=== PATIENT | male | born 1945 | race Caucasian/White ===

== ENCOUNTER → 2022-10-18 16:56 | Outpatient (CLI) | payer MEDICARE, OTHER, SELFPAY ==
[2022-10-18 17:42] LABS: Basophils % 0.7 % (0.1-2.0); Eosinophils # 0.2 K/mm3 (0.0-0.4); Eosinophils % 3.7 % (0.1-12.0); Hematocrit 36.8 % (42.0-52.0); Hemoglobin 11.7 g/dL (14.1-18.0); Lymphocytes # 1.6 K/mm3 (0.7-4.5); Lymphocytes % 31.5 % (10-50); Mean Corpuscular HGB Conc 31.8 g/dL (31.8-35.4); Mean Corpuscular Hemoglobin 26.6 pg (27.0-31.2); Mean Corpuscular Volume 83.6 fl (80-94); Mean Platelet Volume 10.3 fl (7.4-10.4); Monocytes # 0.5 K/mm3 (0.1-1.0); Monocytes % 9.2 % (1.7-9.3); Neutrophils # 2.7 K/mm3 (1.8-7.8); Neutrophils % 54.9 % (37.0-80.0); Platelet Count 178 K/mm3 (142-424); Red Cell Distribution Width 16.1 % (11.5-17.5)
[2022-10-18 18:08] LABS: Alanine Aminotransferase 14 U/L (12-78); Albumin Level 4.2 g/dl (3.5-5.0); Albumin/Globulin Ratio 1.4 (1.1-1.8); Alkaline Phosphatase 45 U/L (38-126); Anion Gap 14.8 mEq/L (5-15); Aspartate Amino Transferase 29 U/L (17-59); Bilirubin,Total 0.4 mg/dl (0.2-1.3); Blood Urea Nitrogen 18 mg/dl (9-20); Calcium 8.3 mg/dl (8.4-10.2); Carbon Dioxide 24 mmol/L (22.0-30.0); Chloride 104 mmol/L (98-107); Cholesterol 87 mg/dl (140-200); Estimated Glomerular Filt Rate 65 ml/min (>60); GFR (African American) 79 ML/MIN (>60); Globulin 2.9 g/dL (1.3-3.2); Glucose 102 mg/dl (74-100); HDL Cholesterol 29 mg/dl (40-60); Potassium 4.8 mmoL/L (3.5-5.1); Sodium 138 mmol/L (136-145); Total Protein,Serum 7.1 g/dl (6.3-8.2); Triglycerides 203 mg/dl (30-150); VLDL Cholesterol 41 mg/dL (0-40)
[2022-10-18 18:09] LABS: Erythrocyte Sedimentation Rate 43 mm/hr (0-20)
[2022-10-18 18:20] LABS: C-Reactive Protein 4.5 mg/L (0-4); Direct LDL Cholesterol 31.23 mg/dL (100-129)
[2022-10-18 18:40] LABS: Thyroid Stimulating Hormone 4.29 uIU/mL (0.465-4.68)
[2022-10-18 19:39] LABS: Hemoglobin A1C 5.9 % (4.0-6.0)
== END ==
PROVIDERS: PCP Family Medicine; Visit Provider Family Medicine
DX: E11.9 Type 2 diabetes mellitus without complications (principal); M06.9 Rheumatoid arthritis, unspecified; E78.5 Hyperlipidemia, unspecified; I10 Essential (primary) hypertension; Z79.84 Long term (current) use of oral hypoglycemic drugs
CPT/HCPCS: 80053; 80061; 83036; 84443; 85025; 85651; 86140

== ENCOUNTER → 2022-10-20 07:18 | Outpatient (CLI) | payer MEDICARE, OTHER, SELFPAY ==
--- NOTE | 2022-10-20 07:18 | US_ITS ---
FINAL REPORT TECHNIQUE: Ultrasound images of the abdominal aorta were obtained. CLINICAL HISTORY: follow-up on aorta COMPARISON: None FINDINGS: ULTRASOUND OF THE ABDOMINAL AORTA The aorta measures up to 18 millimeters, within normal limits. Iliac arteries measure 7 mm and 7 mm. IMPRESSION: No evidence of abdominal aortic aneurysm. Reviewed, Interpreted and Dictated by Tio Mercado III, MD Transcribed by Carolina Chaidez Authenticated and [facility]
== END ==
PROVIDERS: PCP Family Medicine; Visit Provider Family Medicine
DX: E78.5 Hyperlipidemia, unspecified (principal); I10 Essential (primary) hypertension
CPT/HCPCS: 76770

== ENCOUNTER → 2023-01-17 17:29 | Outpatient (CLI) | payer MEDICARE, OTHER, SELFPAY ==
[2023-01-17 19:42] LABS: Erythrocyte Sedimentation Rate 22 mm/hr (0-20)
[2023-01-17 19:45] LABS: Basophils % 0.7 % (0.1-2.0); Eosinophils # 0.2 K/mm3 (0.0-0.4); Eosinophils % 2.9 % (0.1-12.0); Hematocrit 36.3 % (42.0-52.0); Hemoglobin 11.4 g/dL (14.1-18.0); Lymphocytes # 1.3 K/mm3 (0.7-4.5); Lymphocytes % 22.9 % (10-50); Mean Corpuscular HGB Conc 31.4 g/dL (31.8-35.4); Mean Corpuscular Hemoglobin 26.5 pg (27.0-31.2); Mean Corpuscular Volume 84.4 fl (80-94); Mean Platelet Volume 11.2 fl (7.4-10.4); Monocytes # 0.5 K/mm3 (0.1-1.0); Monocytes % 8.4 % (1.7-9.3); Neutrophils # 3.6 K/mm3 (1.8-7.8); Neutrophils % 65.1 % (37.0-80.0); Platelet Count 179 K/mm3 (142-424); White Blood Count 5.5 K/mm3 (4.8-10.8)
[2023-01-17 20:15] LABS: Alanine Aminotransferase 16 U/L (12-78); Albumin Level 4.1 g/dl (3.5-5.0); Albumin/Globulin Ratio 1.4 (1.1-1.8); Alkaline Phosphatase 45 U/L (38-126); Anion Gap 12.1 mEq/L (5-15); Aspartate Amino Transferase 26 U/L (17-59); Bilirubin,Total 0.2 mg/dl (0.2-1.3); Blood Urea Nitrogen 17 mg/dl (9-20); Calcium 8.5 mg/dl (8.4-10.2); Carbon Dioxide 24 mmol/L (22.0-30.0); Chloride 108 mmol/L (98-107); Estimated Glomerular Filt Rate 73 ml/min (>60); GFR (African American) 88 ML/MIN (>60); Glucose 117 mg/dl (74-100); Potassium 5.1 mmoL/L (3.5-5.1); Sodium 139 mmol/L (136-145); Total Protein,Serum 7.1 g/dl (6.3-8.2)
[2023-01-17 20:20] LABS: C-Reactive Protein 2.9 mg/L (0-4)
[2023-01-19 13:49] LABS: Anti-Cyclic Citrullinated Pept >250 units (0-19)
== END ==
PROVIDERS: PCP Family Medicine; Visit Provider Family Medicine
DX: M05.79 Rheumatoid arthritis with rheumatoid factor of multiple sites without organ or systems involvement (principal)
CPT/HCPCS: 80053; 85025; 85651; 86140; 86200; 86431

== ENCOUNTER → 2023-02-14 07:50 | Outpatient (CLI) | payer MEDICARE, OTHER, SELFPAY ==
--- NOTE | 2023-02-14 07:55 | XR_ITS ---
FINAL REPORT CLINICAL HISTORY: Left shoulder pain FINDINGS: Left shoulder Three views were obtained. There is no acute fracture or dislocation. There is mild AC and glenohumeral joint degenerative change. There are multiple subchondral cysts in the superior humeral head. There is a small calcification superior to the humeral head, may represent calcific tendinitis. There is a questionable chronic Hill-Sachs deformity. IMPRESSION: Degenerative and chronic appearing findings as detailed above. Reviewed, Interpreted and Dictated by Tio Mercado III, MD Transcribed by Maryellen Jackson Authenticated and [facility]
== END ==
PROVIDERS: PCP Family Medicine; Visit Provider Orthopaedic Surgery
DX: M25.512 Pain in left shoulder (principal)
CPT/HCPCS: 73030

== ENCOUNTER → 2023-06-05 23:00 | Outpatient (CLI) | payer MEDICARE, OTHER, SELFPAY | PROVIDERS: PCP Family Medicine; Visit Provider Family Medicine | DX: R05.9 Cough, unspecified (principal); U07.1 COVID-19 | CPT/HCPCS: 87635 ==

== ENCOUNTER 2023-09-25 19:02 | Outpatient (CLI) | payer MEDICARE, OTHER, SELFPAY ==
[2023-09-25 16:31] LABS: Cholesterol 104 mg/dl (140-200); Triglycerides 223 mg/dl (30-150); VLDL Cholesterol 45 mg/dL (0-40)
[2023-09-25 16:32] LABS: Chol/HDL Ratio 3.6 (1-3.5); HDL Cholesterol 29 mg/dl (40-60)
[2023-09-25 16:39] LABS: Hemoglobin A1C 6.5 % (4.0-6.0)
[2023-09-25 16:42] LABS: Direct LDL Cholesterol 41.66 mg/dL (100-129)
[2023-09-25 16:49] LABS: Amphetamine/Metha Screen,Urine Negative ng/ml (<1000)
[2023-09-25 16:50] LABS: Barbiturates Screen,Urine Negative ng/ml (<200); Microalbumin/Creatinine Ratio 14.3
[2023-09-25 16:51] LABS: Benzodiazepines Screen,Urine Negative ng/ml (<200); Cannabinoid Screen,Urine Negative ng/ml (<50)
[2023-09-25 16:52] LABS: Cocaine Screen,Urine Negative ng/ml (<300)
[2023-09-25 16:53] LABS: Methadone Screen,Urine Negative ng/ml (<300); Opiate Screen,Urine Negative ng/ml (<300)
[2023-09-25 16:54] LABS: Phencyclidine Screen,Urine Negative ng/ml (<25)
[2023-09-25 17:03] LABS: Thyroid Stimulating Hormone 4.92 uIU/mL (0.465-4.68)
[2023-09-26 09:24] LABS: Basophils # 0.1 K/mm3 (0-0.2); Eosinophils # 0.1 K/mm3 (0.0-0.4); Eosinophils % 1.8 % (0.1-12.0); Hematocrit 39.7 % (42.0-52.0); Hemoglobin 12.3 g/dL (14.1-18.0); Lymphocytes # 1.5 K/mm3 (0.7-4.5); Lymphocytes % 20.8 % (10-50); Mean Corpuscular Volume 90.2 fl (80-94); Mean Platelet Volume 11.7 fl (7.4-10.4); Monocytes # 0.5 K/mm3 (0.1-1.0); Monocytes % 6.8 % (1.7-9.3); Neutrophils % 69.6 % (37.0-80.0); Platelet Count 160 K/mm3 (142-424); Red Blood Count 4.39 M/mm3 (4.60-6.20); White Blood Count 7.2 K/mm3 (4.8-10.8)
[2023-09-26 09:28] LABS: Chloride 108 mmol/L (98-107); Sodium 139 mmol/L (136-145)
[2023-09-26 09:29] LABS: Potassium 4.2 mmoL/L (3.5-5.1)
[2023-09-26 09:31] LABS: Alanine Aminotransferase 19 U/L (12-78); Albumin Level 3.8 g/dl (3.5-5.0); Albumin/Globulin Ratio 1.3 (1.1-1.8); Alkaline Phosphatase 46 U/L (38-126); Anion Gap 10.2 mEq/L (5-15); Aspartate Amino Transferase 36 U/L (17-59); Bilirubin,Total 0.3 mg/dl (0.2-1.3); Blood Urea Nitrogen 21 mg/dl (9-20); Carbon Dioxide 25 mmol/L (22.0-30.0); Estimated Glomerular Filt Rate 73 ml/min (>60); GFR (African American) 88 ML/MIN (>60); Globulin 2.9 g/dL (1.3-3.2); Total Protein,Serum 6.7 g/dl (6.3-8.2)
[2023-09-26 09:32] LABS: Glucose 118 mg/dl (74-100)
[2023-09-26 09:37] LABS: C-Reactive Protein 2.7 mg/L (0-4)
[2023-09-26 13:56] LABS: Creatinine,Urine Random 139 mg/dL (Not Estab.)
== END 2023-09-25 23:59 ==
LOC: LAB.DROPOF 19:03
PROVIDERS: Physician Assistant Medical; PCP Family Medicine; Visit Provider Family Medicine
DX: E78.5 Hyperlipidemia, unspecified (principal); E11.9 Type 2 diabetes mellitus without complications; Z79.899 Other long term (current) drug therapy; Z79.84 Long term (current) use of oral hypoglycemic drugs; R80.9 Proteinuria, unspecified
CPT/HCPCS: 80053; 80061; 80307; 82043; 82570; 83036; 84443; 85025; 86140

== ENCOUNTER 2023-10-02 17:34 | Outpatient (CLI) | payer MEDICARE, OTHER, SELFPAY ==
[2023-10-02 16:43] LABS: Erythrocyte Sedimentation Rate 52 mm/hr (0-20)
== END 2023-10-02 23:59 ==
PROVIDERS: PCP Family Medicine; Visit Provider Family Medicine
DX: M06.9 Rheumatoid arthritis, unspecified (principal)
CPT/HCPCS: 85651

== ENCOUNTER 2024-01-08 16:38 | Outpatient (CLI) | payer MEDICARE, OTHER, SELFPAY ==
[2024-01-08 17:17] LABS: Basophils % 0.7 % (0.1-2.0); Eosinophils # 0.2 K/mm3 (0.0-0.4); Eosinophils % 2.5 % (0.1-12.0); Hematocrit 35.1 % (42.0-52.0); Hemoglobin 11.3 g/dL (14.1-18.0); Lymphocytes # 1.7 K/mm3 (0.7-4.5); Lymphocytes % 28.2 % (10-50); Mean Corpuscular HGB Conc 32.2 g/dL (31.8-35.4); Mean Corpuscular Volume 86.9 fl (80-94); Mean Platelet Volume 9.6 fl (7.4-10.4); Monocytes # 0.5 K/mm3 (0.1-1.0); Monocytes % 8.7 % (1.7-9.3); Neutrophils # 3.6 K/mm3 (1.8-7.8); Neutrophils % 59.9 % (37.0-80.0); Platelet Count 211 K/mm3 (142-424); Red Blood Count 4.04 M/mm3 (4.60-6.20); Red Cell Distribution Width 15.7 % (11.5-17.5)
[2024-01-08 17:42] LABS: Alanine Aminotransferase 11 U/L (12-78); Albumin Level 3.8 g/dl (3.5-5.0); Albumin/Globulin Ratio 1.4 (1.1-1.8); Alkaline Phosphatase 44 U/L (38-126); Aspartate Amino Transferase 24 U/L (17-59); Bilirubin,Total 0.3 mg/dl (0.2-1.3); Blood Urea Nitrogen 19 mg/dl (9-20); Calcium 8.7 mg/dl (8.4-10.2); Carbon Dioxide 24 mmol/L (22.0-30.0); Cholesterol 114 mg/dl (140-200); Estimated Glomerular Filt Rate 65 ml/min (>60); GFR (African American) 79 ML/MIN (>60); Globulin 2.7 g/dL (1.3-3.2); Glucose 104 mg/dl (74-100); Total Protein,Serum 6.5 g/dl (6.3-8.2); Triglycerides 269 mg/dl (30-150); VLDL Cholesterol 54 mg/dL (0-40)
[2024-01-08 17:43] LABS: Chol/HDL Ratio 3.7 (1-3.5); HDL Cholesterol 31 mg/dl (40-60)
[2024-01-08 17:48] LABS: Erythrocyte Sedimentation Rate 71 mm/hr (0-20)
[2024-01-08 17:50] LABS: Anion Gap 11.8 mEq/L (5-15); Chloride 107 mmol/L (98-107); Potassium 4.8 mmoL/L (3.5-5.1); Sodium 139 mmol/L (136-145); Uric Acid 7.8 mg/dl (3.5-8.5)
[2024-01-08 17:54] LABS: Direct LDL Cholesterol 47.74 mg/dL (100-129)
[2024-01-08 18:13] LABS: Prostate Specific Ag Screen 0.3 ng/ml (0.0-4.0)
[2024-01-08 18:14] LABS: Thyroid Stimulating Hormone 3.69 uIU/mL (0.465-4.68)
[2024-01-08 19:35] LABS: Hemoglobin A1C 8.4 % (4.0-6.0)
[2024-01-10 08:21] LABS: RA Latex Turbid. 31.8 IU/mL (<14.0)
[2024-02-19 11:45] LABS: Antinuclear Antibodies, IFA Positive
== END 2024-01-08 23:59 | disposition home or self-care (01) ==
LOC: LAB.DROPOF 16:39
PROVIDERS: PCP Family Medicine; Visit Provider Family Medicine
DX: Z12.5 Encounter for screening for malignant neoplasm of prostate (principal); I10 Essential (primary) hypertension; M06.9 Rheumatoid arthritis, unspecified; E11.9 Type 2 diabetes mellitus without complications
CPT/HCPCS: 80053; 80061; 83036; 84443; 84550; 85025; 85651; 86038; 86140; 86431; G0103

== ENCOUNTER 2024-04-11 08:18 | Outpatient (CLI) | payer MEDICARE, OTHER, SELFPAY ==
[2024-04-11 16:22] LABS: Basophils % 0.7 % (0.1-2.0); Eosinophils # 0.1 K/mm3 (0.0-0.4); Eosinophils % 2.1 % (0.1-12.0); Hematocrit 36.7 % (42.0-52.0); Hemoglobin 12.1 g/dL (14.1-18.0); Lymphocytes # 1.6 K/mm3 (0.7-4.5); Lymphocytes % 32.7 % (10-50); Mean Corpuscular Hemoglobin 28.3 pg (27.0-31.2); Mean Corpuscular Volume 85.8 fl (80-94); Mean Platelet Volume 10.1 fl (7.4-10.4); Monocytes # 0.4 K/mm3 (0.1-1.0); Neutrophils # 2.8 K/mm3 (1.8-7.8); Neutrophils % 56.5 % (37.0-80.0); Platelet Count 143 K/mm3 (142-424); Red Blood Count 4.28 M/mm3 (4.60-6.20); Red Cell Distribution Width 16.3 % (11.5-17.5); White Blood Count 4.9 K/mm3 (4.8-10.8)
[2024-04-11 16:40] LABS: Alanine Aminotransferase 11 U/L (12-78); Albumin Level 4.1 g/dl (3.5-5.0); Albumin/Globulin Ratio 1.5 (1.1-1.8); Alkaline Phosphatase 33 U/L (38-126); Anion Gap 9.4 mEq/L (5-15); Aspartate Amino Transferase 28 U/L (17-59); Bilirubin,Total 0.7 mg/dl (0.2-1.3); Blood Urea Nitrogen 16 mg/dl (9-20); Carbon Dioxide 23 mmol/L (22.0-30.0); Chloride 108 mmol/L (98-107); Estimated Glomerular Filt Rate 82 ml/min (>60); GFR (African American) 99 ML/MIN (>60); Globulin 2.7 g/dL (1.3-3.2); Glucose 96 mg/dl (74-100); Potassium 4.4 mmoL/L (3.5-5.1); Sodium 136 mmol/L (136-145); Total Protein,Serum 6.8 g/dl (6.3-8.2)
[2024-04-11 16:44] LABS: C-Reactive Protein 4.6 mg/L (0-4)
[2024-04-11 17:14] LABS: Hemoglobin A1C 5.9 % (4.0-6.0)
[2024-04-12 17:02] LABS: Erythrocyte Sedimentation Rate QNS mm/hr (0-20)
== END 2024-04-11 23:59 | disposition home or self-care (01) ==
LOC: LAB.DROPOF 04-12 08:27
PROVIDERS: PCP Family Medicine; Visit Provider Family Medicine
DX: M06.9 Rheumatoid arthritis, unspecified (principal); E11.9 Type 2 diabetes mellitus without complications
CPT/HCPCS: 80053; 83036; 85025; 85651; 86140

== ENCOUNTER 2024-04-12 16:05 | Outpatient (CLI) | payer MEDICARE, OTHER, SELFPAY | END 2024-04-12 23:59 | disposition home or self-care (01) | LOC: LAB.DROPOF 16:09 | PROVIDERS: PCP Family Medicine; Visit Provider Family Medicine | DX: Z02.9 Encounter for administrative examinations, unspecified (principal) ==

== ENCOUNTER 2025-04-01 09:00 | Outpatient (RCR) | payer MEDICARE, OTHER, SELFPAY | END 2025-04-01 23:59 | disposition home or self-care (01) | LOC: PT.CARL 09:00 | PROVIDERS: Visit Provider Internal Medicine | DX: R29.898 Other symptoms and signs involving the musculoskeletal system (principal) | CPT/HCPCS: 97110; 97162; 97530 ==

== ENCOUNTER 2025-04-15 09:00 | Outpatient (RCR) | payer MEDICARE, OTHER, SELFPAY | END 2025-04-23 14:39 | disposition home or self-care (01) | LOC: PT.CARL 09:00 | PROVIDERS: Visit Provider Internal Medicine | DX: R29.898 Other symptoms and signs involving the musculoskeletal system (principal) | CPT/HCPCS: 97110; 97530 ==